=== PATIENT | female | born 1990 | race Caucasian/White ===

== ENCOUNTER 2019-02-23 13:42 | Inpatient (IN) ==
[2019-02-23 14:34] LABS: Apearance,Urine CLOUDY (Clear); Bacteria,Urine Occasional /HPF (Few); Bilirubin,Urine Negative (Negative); Blood, Urine Moderate mg/dL (Negative); Glucose,Urine (UA) Negative (Negative); Hyaline Casts,Urine 9 /LPF (0-3); Ketones,Urine Negative (Negative); Mucus,Urine Occasional /LPF (Occasional); Nitrite,Urine Negative (Negative); Protein,Urine 100 MG/DL; RBC,Urine 22 /HPF (0-4); Squamous Epithelial Cell,Urine Few /HPF (0-10); Urine Color Amber (Yellow); WBC,Urine 285 /HPF (0-6)
[2019-02-23] MEDS ORDERED: SODIUM CHLORIDE 0.9% 1,000 ML IV STA ×2 (15:19→17:26)
[2019-02-23 15:55] LABS: Basophils # 0.1 10*3/uL (0.0-0.2); Basophils % 0.3 % (0.0-0.8); Eosinophils # 0.1 10*3/uL (0.0-0.87); Eosinophils % 0.3 % (0.00-10.9); Hematocrit 38.4 VOL% (35.7-47.0); Hemoglobin 12.5 GM/DL (12.0-16.0); Immature Granulocytes % 1.2 %; Immature Granulocytes Absolute 0.31 #; Lymphocytes # 0.9 10*3/uL (1.4-4.0); Lymphocytes % 3.7 % (21.3-54.2); Mean Corpuscular HGB Conc 32.6 GM/DL (32-36); Mean Corpuscular Volume 92.1 FL (87-102); Mean Platelet Volume 10.3 FL (9.6-12.0); Monocytes % 13.7 % (1.7-12.7); Neutrophils % 80.8 % (38.7-73.9); Platelet Count 262 T/CUMM (130-400); Red Blood Count 4.17 MC/CUMM (3.8-5.5); Red Cell Distribution Width 12.4 % (9.3-17.3); White Blood Count 25.1 T/CUMM (4-12)
[2019-02-23 16:09] LABS: Barbiturates Screen,Urine Negative (Negative); Benzodiazepines Screen,Urine Negative (Negative); Cannabinoid Screen,Urine Positive (Negative); Opiate Screen,Urine Negative (Negative); Phencyclidine Screen,Urine Negative (Negative)
[2019-02-23 16:15] LABS: Albumin 2.9 G/DL (3.4-5.0); Bilirubin,Total 0.5 MG/DL (0.2-1.0); Calcium 8.6 MG/DL (8.5-10.1); Osmolality,Calculated 269.2 MOS/KG (273-304); Total Protein 7.6 G/DL (6.4-8.3)
[2019-02-23] MEDS ORDERED: cefTRIAXone 1,000 MG in SODIUM CHLORIDE 0.9% 100 ML IV STA (17:02)
[2019-02-23 17:16] LABS: Band Neutrophils 6 % (0-10); Eosinophils 1 % (0-10); Lymphocytes 6 % (20-55); Segmented Neutrophils 73 % (50-85); Total Cells Counted 100
[2019-02-23 17:17] LABS: Hypochromasia Slight; Microcytosis Slight
[2019-02-23 17:19] LABS: Platelet Estimate Normal
[2019-02-23] MEDS ORDERED: cefTRIAXone 1,000 MG in SYRINGE 1 EACH IV ONE (21:00)
[2019-02-23] MEDS ORDERED: PNEUMOCOCCAL VACCINE (23 VALENT) 0.5 ML VIAL IM ONE (21:08)
[2019-02-23] MEDS: SODIUM CHLORIDE 0.9% 1,000 ML IV SCH (21:16)
[2019-02-23] MEDS: ENOXAPARIN 30 MG/0.3 ML SYRINGE SUBCUT SCH (21:17)
[2019-02-23] MEDS: ONDANSETRON 4 MG/2 ML VIAL IV PRN (21:24)
[2019-02-23] MEDS: NICOTINE 14 MG/24 HR PATCH TRANSDERM SCH (21:27)
[2019-02-24] MEDS: MORPHINE 4 MG/1 ML VIAL IV PRN ×3 (04:23→20:24)
[2019-02-24 04:46] LABS: Basophils % 0.2 % (0.0-0.8); Eosinophils # 0.1 10*3/uL (0.0-0.87); Eosinophils % 0.6 % (0.00-10.9); Hematocrit 32.5 VOL% (35.7-47.0); Hemoglobin 11.1 GM/DL (12.0-16.0); Immature Granulocytes % 0.7 %; Immature Granulocytes Absolute 0.14 #; Lymphocytes # 0.9 10*3/uL (1.4-4.0); Lymphocytes % 4.5 % (21.3-54.2); Mean Corpuscular HGB Conc 34.2 GM/DL (32-36); Mean Corpuscular Volume 90.3 FL (87-102); Monocytes % 14.2 % (1.7-12.7); Neutrophils % 79.8 % (38.7-73.9); Platelet Count 240 T/CUMM (130-400); Red Cell Distribution Width 12.4 % (9.3-17.3); White Blood Count 19.5 T/CUMM (4-12)
[2019-02-24] MEDS: SODIUM CHLORIDE 0.9% 1,000 ML IV SCH ×3 (05:01→20:30)
[2019-02-24 05:10] LABS: Eosinophils 1 % (0-10); Lymphocytes 4 % (20-55); Segmented Neutrophils 83 % (50-85); Total Cells Counted 100
[2019-02-24 05:11] LABS: Burr Cells Few; Microcytosis Slight
[2019-02-24 05:12] LABS: Platelet Estimate Normal
[2019-02-24 05:22] LABS: Calcium 7.7 MG/DL (8.5-10.1)
[2019-02-24] MEDS: PANTOPRAZOLE 40 MG TABLET PO SCH (08:39)
[2019-02-24] MEDS: NICOTINE 14 MG/24 HR PATCH TRANSDERM SCH (08:39)
[2019-02-24] MEDS: POTASSIUM CHLORIDE 20 MEQ TABLET PO PRN ×3 (12:22→17:55)
[2019-02-24] MEDS: ENOXAPARIN 30 MG/0.3 ML SYRINGE SUBCUT SCH (20:13)
[2019-02-24] MEDS: cefTRIAXone 2,000 MG in SYRINGE 1 EACH IV SCH (20:13)
[2019-02-24] MEDS: ONDANSETRON 4 MG/2 ML VIAL IV PRN (20:24)
[2019-02-24] MEDS ORDERED: LACTULOSE 20 GM/30 ML UDCUP PO ONE (21:13)
[2019-02-25 00:52] LABS: Basophils % 0.3 % (0.0-0.8); Eosinophils # 0.2 10*3/uL (0.0-0.87); Eosinophils % 1.5 % (0.00-10.9); Hematocrit 34.3 VOL% (35.7-47.0); Hemoglobin 11.1 GM/DL (12.0-16.0); Immature Granulocytes % 0.5 %; Immature Granulocytes Absolute 0.06 #; Lymphocytes # 1.9 10*3/uL (1.4-4.0); Lymphocytes % 16.4 % (21.3-54.2); Mean Corpuscular HGB Conc 32.4 GM/DL (32-36); Mean Corpuscular Volume 92.7 FL (87-102); Mean Platelet Volume 10.5 FL (9.6-12.0); Monocytes % 12.9 % (1.7-12.7); Neutrophils % 68.4 % (38.7-73.9); Platelet Count 275 T/CUMM (130-400); Red Cell Distribution Width 12.6 % (9.3-17.3); White Blood Count 11.5 T/CUMM (4-12)
[2019-02-25] MEDS: SODIUM CHLORIDE 0.9% 1,000 ML IV SCH ×3 (04:32→21:21)
[2019-02-25] MEDS ORDERED: ACETAMINOPHEN 325 MG TABLET PO ONE (04:41)
[2019-02-25] MEDS: NICOTINE 14 MG/24 HR PATCH TRANSDERM SCH (08:52)
[2019-02-25] MEDS: PANTOPRAZOLE 40 MG TABLET PO SCH (08:52)
[2019-02-25] MEDS: MORPHINE 4 MG/1 ML VIAL IV PRN (12:32)
[2019-02-25] MEDS: ONDANSETRON 4 MG/2 ML VIAL IV PRN (21:19)
[2019-02-25] MEDS: cefTRIAXone 2,000 MG in SYRINGE 1 EACH IV SCH (21:19)
[2019-02-25] MEDS: ENOXAPARIN 30 MG/0.3 ML SYRINGE SUBCUT SCH (21:20)
[2019-02-26] MEDS: MORPHINE 4 MG/1 ML VIAL IV PRN (01:05)
[2019-02-26 05:48] LABS: Basophils % 0.3 % (0.0-0.8); Eosinophils # 0.4 10*3/uL (0.0-0.87); Eosinophils % 3.9 % (0.00-10.9); Hematocrit 32.6 VOL% (35.7-47.0); Hemoglobin 10.8 GM/DL (12.0-16.0); Immature Granulocytes Absolute 0.09 #; Lymphocytes # 2.7 10*3/uL (1.4-4.0); Lymphocytes % 29.6 % (21.3-54.2); Mean Corpuscular HGB Conc 33.1 GM/DL (32-36); Mean Corpuscular Volume 92.9 FL (87-102); Mean Platelet Volume 10.8 FL (9.6-12.0); Monocytes % 16.6 % (1.7-12.7); Neutrophils % 48.6 % (38.7-73.9); Platelet Count 284 T/CUMM (130-400); Red Blood Count 3.51 MC/CUMM (3.8-5.5); White Blood Count 8.9 T/CUMM (4-12)
[2019-02-26 06:11] LABS: Eosinophils 2 % (0-10); Lymphocytes 33 % (20-55); Platelet Estimate Adequate; Segmented Neutrophils 56 % (50-85); Total Cells Counted 100
[2019-02-26 06:12] LABS: Hypochromasia 1+; Ovalocytes Slight
[2019-02-26] MEDS: SODIUM CHLORIDE 0.9% 1,000 ML IV SCH (06:39)
[2019-02-26] MEDS: NICOTINE 14 MG/24 HR PATCH TRANSDERM SCH (08:30)
[2019-02-26] MEDS: PANTOPRAZOLE 40 MG TABLET PO SCH (08:30)
[2019-02-26 11:39] VITALS: BP 111/65
== END 2019-02-26 12:45 | disposition home or self-care (01) | DRG 690 ==
LOC: N.ED 13:42 → N.EDINP 19:44 → SUATTDRO 19:44 → N.EDINP 20:40 → N.2E 20:49
PROVIDERS: ADMIT Internal Medicine; ATTEND Internal Medicine Nephrology